=== PATIENT | female | born 1980 | race Hispanic/Latino ===

== ENCOUNTER 2019-06-26 10:02 | Emergency (ER) | payer SELFPAY | END 2019-06-26 10:29 | disposition home or self-care (01) | LOC: EDH 10:02 | DX: M25.511 Pain in right shoulder (principal); R20.2 Paresthesia of skin | CPT/HCPCS: 99281 ==

== ENCOUNTER 2023-06-05 11:34 | Emergency (ER) | payer OTHER ==
[~2023-06-05] VITALS: Ht 149.9 cm; Wt 113.4 kg
[2023-06-05] MEDS ORDERED: CYCLOBENZAPRINE HCL 10 MG TABLET PO ONE (13:30)
[2023-06-05] MEDS ORDERED: KETOROLAC 30MG VIAL (30MG/ML) IM ONE (13:30)
[2023-06-05] MEDS ORDERED: IBUP-2070 PO (14:21)
[2023-06-05] MEDS ORDERED: CYCL10TA16 PO (14:21)
[2023-06-05 14:56] VITALS: BP 136/67; PULSE 88; RESP 18; O2SAT 99
== END 2023-06-05 14:58 | disposition home or self-care (01) ==
LOC: EDH 11:34
DX: S83.8X2A Sprain of other specified parts of left knee, initial encounter (principal); E11.9 Type 2 diabetes mellitus without complications; Z79.899 Other long term (current) drug therapy; W01.0XXA Fall on same level from slipping, tripping and stumbling without subsequent striking against object, initial encounter; Y93.89 Activity, other specified; Y92.89 Other specified places as the place of occurrence of the external cause; Y99.8 Other external cause status
CPT/HCPCS: 99284; 81025; 73562; 96372; J1885